=== PATIENT | female | born 1990 ===

== ENCOUNTER 2022-06-10 12:13 | Outpatient (CLI) | payer OTHER | END 2022-06-10 14:00 | disposition home or self-care (01) | LOC: PRENATAL 12:13 | PROVIDERS: ATTEND Obstetrics & Gynecology Maternal & Fetal Medicine | DX: O36.80X0 Pregnancy with inconclusive fetal viability, not applicable or unspecified (principal); O99.210 Obesity complicating pregnancy, unspecified trimester; Z3A.13 13 weeks gestation of pregnancy ==

== ENCOUNTER 2022-08-01 13:55 | Outpatient (CLI) | payer OTHER | END 2022-08-01 14:55 | disposition home or self-care (01) | LOC: PRENATAL 13:55 | PROVIDERS: ATTEND Obstetrics & Gynecology Maternal & Fetal Medicine | DX: O35.9XX0 Maternal care for (suspected) fetal abnormality and damage, unspecified, not applicable or unspecified (principal); O35.3XX0 Maternal care for (suspected) damage to fetus from viral disease in mother, not applicable or unspecified; Z14.8 Genetic carrier of other disease; O99.210 Obesity complicating pregnancy, unspecified trimester; O10.019 Pre-existing essential hypertension complicating pregnancy, unspecified trimester; Z3A.21 21 weeks gestation of pregnancy ==

== ENCOUNTER 2022-09-26 13:57 | Outpatient (CLI) | payer OTHER | END 2022-09-26 17:15 | disposition home or self-care (01) | LOC: PRENATAL 13:57 | PROVIDERS: ATTEND Obstetrics & Gynecology Maternal & Fetal Medicine | DX: O26.849 Uterine size-date discrepancy, unspecified trimester (principal); O99.210 Obesity complicating pregnancy, unspecified trimester; O10.019 Pre-existing essential hypertension complicating pregnancy, unspecified trimester; Z3A.29 29 weeks gestation of pregnancy ==

== ENCOUNTER 2022-10-24 13:53 | Outpatient (CLI) | payer OTHER | END 2022-10-24 17:11 | disposition home or self-care (01) | LOC: PRENATAL 13:53 | PROVIDERS: ATTEND Obstetrics & Gynecology Maternal & Fetal Medicine | DX: O26.849 Uterine size-date discrepancy, unspecified trimester (principal); O10.019 Pre-existing essential hypertension complicating pregnancy, unspecified trimester; O36.8199 Decreased fetal movements, unspecified trimester, other fetus ==

== ENCOUNTER → 2022-11-21 | Outpatient (CLI) | payer OTHER ==
[~2022-11-21] MED LIST: LABETALOL HCL100 MG PO; PRENATAL TABLE1 EAC1 PO; ZYRTEC10 M3 PO
== END | disposition home or self-care (01) ==
LOC: PRENATAL 10:41
PROVIDERS: ATTEND Obstetrics & Gynecology Maternal & Fetal Medicine
DX: O26.849 Uterine size-date discrepancy, unspecified trimester (principal); O36.8199 Decreased fetal movements, unspecified trimester, other fetus; O99.210 Obesity complicating pregnancy, unspecified trimester; O10.019 Pre-existing essential hypertension complicating pregnancy, unspecified trimester; O14.90 Unspecified pre-eclampsia, unspecified trimester; Z3A.37 37 weeks gestation of pregnancy

== ENCOUNTER 2022-11-22 06:01 | Inpatient (IN) | payer OTHER ==
[~2022-11-22] VITALS: Ht 152.4 cm; Wt 136.1 kg
[2022-11-22] MEDS ORDERED: LABETALOL HCL100 MG PO (07:56)
[2022-11-22] MEDS ORDERED: PRENATAL TABLE1 EAC1 PO (07:56)
[2022-11-22] MEDS ORDERED: ZYRTEC10 M3 PO (07:58)
== END 2022-11-25 15:13 | disposition home or self-care (01) | DRG 788 ==
LOC: LDR 06:01 → O/R 18:30 → OB/GYN 20:32
PROVIDERS: ADMIT Obstetrics & Gynecology; ATTEND Obstetrics & Gynecology
PROC: 4A1HXCZ Monitoring of Products of Conception, Cardiac Rate, External Approach (ICD-10-PCS; 2022-11-22)
PROC: 3E033VJ Introduction of Other Hormone into Peripheral Vein, Percutaneous Approach (ICD-10-PCS; 2022-11-22)
PROC: 3E0P7VZ Introduction of Hormone into Female Reproductive, Via Natural or Artificial Opening (ICD-10-PCS; 2022-11-22)
PROC: 10D00Z1 Extraction of Products of Conception, Low, Open Approach (ICD-10-PCS; principal; 2022-11-22 17:00)
DX: O61.0 Failed medical induction of labor (principal); O33.8 Maternal care for disproportion of other origin; Z3A.37 37 weeks gestation of pregnancy; Z37.0 Single live birth; Z20.822 Contact with and (suspected) exposure to COVID-19